=== PATIENT | male | born 1965 | race Hispanic/Latino ===

== ENCOUNTER 2017-10-16 22:52 | Inpatient (IN) | payer OTHER ==
[~2017-10-16] VITALS: Ht 185.4 cm; Wt 163.2 kg
[~2017-10-16 22:52] MED LIST: BUME1TAB17 PO; FAMO20TA8 PO; FURO40TA7 PO; LACT PO; LACT10SO9 PO; MIRAUD PO; SPIR100T PO; TRAM50TA2 PO
[2017-10-17] VITALS (9 sets, daily range): BP systolic 77–129; BP diastolic 32–92
[2017-10-17 00:19] LABS: BASOPHILS % (AUTO) 0.5 % (0.0-5.0); EOSINOPHILS % (AUTO) 0.6 % (0.0-8.0); HEMATOCRIT 41.6 % (42-54); LYMPHOCYTES % (AUTO) 4.9 % (21.0-51.0); MEAN CORPUSCULAR HEMOGLOBIN 31.1 pg (27.0-33.0); MEAN CORPUSCULAR VOLUME 89.1 fL (79-99); MONOCYTES % (AUTO) 9.6 % (3.0-13.0); NEUTROPHILS % (AUTO) 84.4 % (40.0-77.0); PLATELET COUNT (AUTO) 206 K/uL (130-400); RED BLOOD CELL COUNT(AUTO) 4.67 MIL/uL (4.50-6.20); WHITE BLOOD COUNT (AUTO) 14.7 K/uL (4.8-10.8)
[2017-10-17 00:36] LABS: PARTIAL THROMBOPLASTIN TIME 59.4 SEC (26.3-35.5)
[2017-10-17 00:40] LABS: INR 4.3 (0.85-1.15); PROTHROMBIN TIME 43.9 SEC (9.6-11.6)
[2017-10-17 00:54] LABS: ALBUMIN 1.6 g/dL (3.5-5.0); CREATININE 5.4 mg/dL (0.5-1.5)
[2017-10-17 01:00] LABS: BILIRUBIN,TOTAL 33.4 mg/dL (0.2-1.0); POTASSIUM 6.5 mmol/L (3.5-5.1)
[2017-10-17] MEDS ORDERED: CALCIUM GLUCONATE 1 GM/10 ML VIAL IV ONE (01:15)
[2017-10-17] MEDS ORDERED: DEXTROSE 50%-WATER 50 ML DISP.SYRIN IV ONE (01:15)
[2017-10-17] MEDS ORDERED: SODIUM POLYSTYRENE SULFONATE 15 GM/60 ML ML ONE (01:15)
[2017-10-17] MEDS ORDERED: INSULIN HUMULIN R 100 UNIT/ML 3ML ONE (01:16)
[2017-10-17 01:36] LABS: TOTAL PROTEIN, SERUM 6.4 g/dL (6.0-8.3)
[2017-10-17] MEDS ORDERED: SODIUM CHLORIDE 0.9% 1000ML 1,000 ML IV SCH ×2 (03:00→17:00)
[2017-10-17 05:13] LABS: ALANINE AMINOTRANSFERASE 167 U/L (12-78); ALBUMIN 1.5 g/dL (3.5-5.0); AMYLASE 23 U/L (25-115); ASPARTATE AMINOTRANSFERASE 352 U/L (10-37); CARBON DIOXIDE 16 mmol/L (21-32); CREATINE KINASE MB 2.7 ng/mL (0.5-3.6); CREATINE KINASE, TOTAL 204 U/L (21-232); CREATININE 5.3 mg/dL (0.5-1.5); GLOMERULAR FILTR. RATE CALC 12 mL/min (>60); GLUCOSE,RANDOM 57 mg/dL (70-105); LIPASE 166 U/L (114-286); MYOGLOBIN 1663 ng/mL (10-92); POTASSIUM 5.5 mmol/L (3.5-5.1); SODIUM SERUM 122 mmol/L (136-145); TROPONIN I < 0.04 ng/mL (0.00-0.06)
[2017-10-17 05:17] LABS: BILIRUBIN,TOTAL 30.5 mg/dL (0.2-1.0); CHLORIDE 85 mmol/L (101-111); UREA NITROGEN, BLOOD 83 mg/dL (7-18)
[2017-10-17 06:17] LABS: TOTAL PROTEIN, SERUM 5.7 g/dL (6.0-8.3)
[2017-10-17] MEDS ORDERED: POTASSIUM CHLORIDE 20 MEQ ERTAB PO PRN (06:45)
[2017-10-17] MEDS ORDERED: ACETAMINOPHEN 325 MG TAB PO PRN ×2 (06:45)
[2017-10-17] MEDS ORDERED: POTASSIUM CHLORIDE 20MEQ/100ML 100 ML IV PRN (06:45)
[2017-10-17] MEDS ORDERED: DEXTROSE 50%-WATER 50 ML DISP.SYRIN IV PRN (06:45)
[2017-10-17] MEDS ORDERED: DiphenhydrAMINE HCL 50 MG/ML VIAL IVP PRN (06:45)
[2017-10-17] MEDS ORDERED: NITROGLYCERIN 0.4 MG SL TAB SL PRN (06:45)
[2017-10-17] MEDS ORDERED: GUAIFENESIN SUGAR-FREE 100 MG/5 ML UDCUP PO PRN (06:45)
[2017-10-17] MEDS ORDERED: GLUCAGON 1MG KIT 1 MG ML IM PRN (06:45)
[2017-10-17] MEDS ORDERED: ZOLPIDEM TARTRATE 5 MG TAB PO PRN (06:45)
[2017-10-17] MEDS ORDERED: MAG HYDROX/AL HYDROX/SIMETH ES 30 ML SUSP UDCUP PO PRN (06:45)
[2017-10-17] MEDS ORDERED: GUAIFENESIN-DM 200/20 MG 10 ML PO PRN (06:45)
[2017-10-17] MEDS ORDERED: LIDOCAINE HCL-MPF 1% 2ML VIAL IJ PRN (06:45)
[2017-10-17] MEDS ORDERED: CLONIDINE HCL 0.1 MG TABLET PO PRN (06:45)
[2017-10-17] MEDS ORDERED: DIPHENHYDRAMINE HCL 25 MG CAPSULE PO PRN (06:45)
[2017-10-17] MEDS ORDERED: ONDANSETRON HCL 4 MG/2 ML VIAL IVP PRN (06:45)
[2017-10-17] MEDS ORDERED: POTASSIUM CHLORIDE 10% ELIXIR 20 MEQ/15 ML UDCUP PO PRN (06:45)
[2017-10-17] MEDS ORDERED: PANTOPRAZOLE SODIUM 40 MG TABLET.DR PO SCH (07:30)
[2017-10-17] MEDS: INSULIN R PO SSI SQ SCH ×4 (07:30→21:00)
[2017-10-17 10:27] LABS: CREATINE KINASE MB 2.6 ng/mL (0.5-3.6); CREATINE KINASE, TOTAL 192 U/L (21-232); MYOGLOBIN 1196 ng/mL (10-92); TROPONIN I < 0.04 ng/mL (0.00-0.06)
[2017-10-17] MEDS ORDERED: RIFA550T PO (10:30)
[2017-10-17] MEDS ORDERED: LACT10SO9 PO (10:30)
[2017-10-17] MEDS ORDERED: LACTULOSE 20 GM/30 ML UDCUP PO SCH (10:45)
[2017-10-17] MEDS: LACTULOSE 20 GM/30 ML UDCUP PO PRN ×2 (11:14→11:15)
[2017-10-17] MEDS ORDERED: LACTULOSE 20 GM/30 ML UDCUP PO ONE (14:00)
[2017-10-17] MEDS ORDERED: OCTREOTIDE ACETATE 100 MCG/ML AMP IV STA (16:57)
[2017-10-17 17:08] LABS: CREATINE KINASE MB 4.5 ng/mL (0.5-3.6); TROPONIN I 0.05 ng/mL (0.00-0.06)
[2017-10-17] MEDS ORDERED: PROPOFOL 10 MG/ML 20ML VIAL IV ONE (17:22)
[2017-10-17] MEDS ORDERED: MIDAZOLAM HCL 1 MG/ML 2ML VIAL ONE (17:23)
[2017-10-17] MEDS ORDERED: EPINEPHRINE 1 MG/ML AMPULE ONE ×2 (17:46→17:49)
[2017-10-17] MEDS ORDERED: EPHEDRINE SULFATE 50 MG/ML AMPULE ONE (17:50)
[2017-10-17] MEDS: OCTREOTIDE ACETATE 1,000 MCG in SODIUM CHLORIDE 0.9% 95 ML IV SCH (18:33)
[2017-10-17] MEDS: LACTULOSE 20 GM/30 ML UDCUP PO SCH ×2 (18:35→23:07)
[2017-10-17 20:38] LABS: APPEARANCE,URINE CLOUDY (CLEAR); BILIRUBIN,URINE LARGE (NEGATIVE); GLUCOSE, URINE (UA) NEGATIVE (NEGATIVE); KETONES,URINE 5 mg/dL (NEGATIVE); LEUKOCYTE ESTERASE ,URINE TRACE (NEGATIVE); NITRATE,URINE NEGATIVE (NEGATIVE); OCCULT BLOOD,URINE TRACE-LYSED (NEGATIVE); PROTEIN,URINE 30 (NEGATIVE)
[2017-10-17 20:41] LABS: COLOR,URINE DARK YELLOW (YELLOW)
[2017-10-17 20:43] LABS: CREATININE,URINE RANDOM 175 mg/dL (30-135); SODIUM,URINE RANDOM 12 mmol/l (40-220)
[2017-10-17 20:52] LABS: AMORPHOUS SEDIMENT,UR Few /LPF (None Seen)
[2017-10-17 20:53] LABS: OTHER CASTS, URINE MIXED CELL CASTS 1+ /LPF (None Seen)
[2017-10-17 20:55] LABS: BACTERIA,URINE Moderate /HPF (None Seen)
[2017-10-17] MEDS ORDERED: MIDODRINE HCL 5 MG TABLET PO SCH (21:00)
[2017-10-17] MEDS ORDERED: PANTOPRAZOLE 40 MG/VIAL IVP SCH ×2 (21:00→22:30)
[2017-10-17] MEDS ORDERED: CALCIUM GLUCONATE 1 GM in DEXTROSE 5%-WATER 50 ML IV PRN (21:30)
[2017-10-17 21:46] LABS: BASOPHILS % (AUTO) 0.2 % (0.0-5.0); EOSINOPHILS % (AUTO) 0.3 % (0.0-8.0); HEMATOCRIT 38.5 % (42-54); LYMPHOCYTES % (AUTO) 5.3 % (21.0-51.0); MEAN CORPUSCULAR HGB CONC 34.9 g/dL (32.0-36.0); MEAN CORPUSCULAR VOLUME 88.9 fL (79-99); MONOCYTES % (AUTO) 10.8 % (3.0-13.0); NEUTROPHILS % (AUTO) 83.4 % (40.0-77.0); NUCLEATED RED BLOOD CELLS 0.1 % (0.0-0.19); PLATELET COUNT (AUTO) 218 K/uL (130-400); RED BLOOD CELL COUNT(AUTO) 4.33 MIL/uL (4.50-6.20); RED CELL DISTRIBUTION WIDTH 17.7 % (11.0-15.5); WHITE BLOOD COUNT (AUTO) 16.6 K/uL (4.8-10.8)
[2017-10-17 21:49] LABS: ABG PCO2 26 mmHg (35-48)
[2017-10-17 21:55] LABS: CREATININE 5.9 mg/dL (0.5-1.5)
[2017-10-17 21:57] LABS: POTASSIUM 6.1 mmol/L (3.5-5.1)
[2017-10-17] MEDS ORDERED: SODIUM BICARB 50MEQ 50ML VIAL IV ONE (22:00)
[2017-10-17] MEDS ORDERED: ALBUMIN (HUMAN) 5% 250 ML IV ONE (22:00)
[2017-10-17] MEDS: SODIUM POLYSTYRENE SULFONATE 15 GM/60 ML ML PO PRN (22:25)
[2017-10-17] MEDS: CALCIUM GLUCONATE 1 GM/10 ML VIAL IV PRN (22:25)
[2017-10-17] MEDS: SODIUM BICARB 8.4% 50ML SYRING 200 MEQ in DEXTROSE 5%-WATER 950 ML IV SCH (22:54)
[2017-10-17] MEDS: PANTOPRAZOLE SODIUM 80 MG in SODIUM CHLORIDE 0.9% 100 ML IV SCH (22:58)
[2017-10-17] MEDS: SODIUM BICARBONATE 650 MG TAB PO SCH (23:18)
[2017-10-17] MEDS: RIFAXIMIN 550 MG TABLET PO SCH (23:18)
[2017-10-17] MEDS ORDERED: LEVOFLOXACIN 500 MG/D5W 100 ML 100 ML ONE (23:58)
[2017-10-18] VITALS (29 sets, daily range): BP systolic 84–124; BP diastolic 25–63
[2017-10-18 03:38] LABS: HEMATOCRIT 35.4 % (42-54); MEAN CORPUSCULAR HEMOGLOBIN 31.8 pg (27.0-33.0); MEAN CORPUSCULAR HGB CONC 36.1 g/dL (32.0-36.0); PLATELET COUNT (AUTO) 202 K/uL (130-400); RED BLOOD CELL COUNT(AUTO) 4.02 MIL/uL (4.50-6.20); RED CELL DISTRIBUTION WIDTH 17.8 % (11.0-15.5); WHITE BLOOD COUNT (AUTO) 13.9 K/uL (4.8-10.8)
[2017-10-18 04:20] LABS: ALBUMIN 1.5 g/dL (3.5-5.0); CREATININE 6.2 mg/dL (0.5-1.5); PHOSPHORUS 6.5 mg/dL (2.5-4.9); THYROID STIMULATING HORMONE 1.56 uIU/mL (0.36-3.74); TOTAL PROTEIN, SERUM 5.3 g/dL (6.0-8.3); URIC ACID 12.1 mg/dL (2.6-7.2)
[2017-10-18 04:28] LABS: BILIRUBIN,TOTAL 29.4 mg/dL (0.2-1.0); POTASSIUM 6.7 mmol/L (3.5-5.1)
[2017-10-18 04:46] LABS: BAND NEUTROPHILS % (MANUAL) 4 % (0-2); LYMPHOCYTES % (MANUAL) 4 % (22-44); MAN.DIFF COMMENT-IMPRESSION MANUAL DIFFERENTIAL; MONOCYTES % (MANUAL) 5 % (2-9); SEGMENTED NEUTROPHILS % 87 % (40-70)
[2017-10-18] MEDS: SODIUM POLYSTYRENE SULFONATE 15 GM/60 ML ML PO PRN (04:57)
[2017-10-18] MEDS: CALCIUM GLUCONATE 1 GM/10 ML VIAL IV PRN (04:58)
[2017-10-18] MEDS ORDERED: SODIUM BICARB 50MEQ 50ML VIAL ONE (05:40)
[2017-10-18] MEDS ORDERED: SODIUM BICARB 50MEQ 50ML VIAL IV ONE (05:45)
[2017-10-18] MEDS: INSULIN HUMULIN R 100 UNIT/ML 3ML IV SCH (05:45)
[2017-10-18] MEDS: DEXTROSE 50%-WATER 25 GM/50 ML VIAL IV SCH (05:45)
[2017-10-18] MEDS: INSULIN R PO SSI SQ SCH ×4 (05:55→20:04)
[2017-10-18] MEDS: LACTULOSE 20 GM/30 ML UDCUP PO SCH ×3 (05:59→18:00)
[2017-10-18] MEDS: PANTOPRAZOLE SODIUM 80 MG in SODIUM CHLORIDE 0.9% 100 ML IV SCH ×2 (07:39→17:41)
[2017-10-18] MEDS: OCTREOTIDE ACETATE 1,000 MCG in SODIUM CHLORIDE 0.9% 95 ML IV SCH (07:40)
[2017-10-18] MEDS: SODIUM BICARBONATE 650 MG TAB PO SCH ×2 (08:19→14:06)
[2017-10-18] MEDS: RIFAXIMIN 550 MG TABLET PO SCH ×2 (08:19→19:53)
[2017-10-18] MEDS: MIDODRINE HCL 5 MG TABLET PO SCH ×3 (08:20→19:54)
[2017-10-18] MEDS ORDERED: CEFTRIAXONE 1GM/D5W 50ML 50 ML IV SCH (09:15)
[2017-10-18] MEDS ORDERED: SODIUM POLYSTYRENE SULFONATE 15 GM/60 ML ML RC SCH (09:15)
[2017-10-18 10:23] LABS: BASOPHILS % (AUTO) 0.3 % (0.0-5.0); CREATININE 6.6 mg/dL (0.5-1.5); EOSINOPHILS % (AUTO) 0.2 % (0.0-8.0); HEMATOCRIT 35.4 % (42-54); LYMPHOCYTES % (AUTO) 4.3 % (21.0-51.0); MEAN CORPUSCULAR HEMOGLOBIN 31.6 pg (27.0-33.0); MEAN CORPUSCULAR HGB CONC 35.9 g/dL (32.0-36.0); MEAN CORPUSCULAR VOLUME 87.9 fL (79-99); MONOCYTES % (AUTO) 8.7 % (3.0-13.0); NEUTROPHILS % (AUTO) 86.5 % (40.0-77.0); PLATELET COUNT (AUTO) 169 K/uL (130-400); POTASSIUM 5.6 mmol/L (3.5-5.1); RED BLOOD CELL COUNT(AUTO) 4.03 MIL/uL (4.50-6.20); RED CELL DISTRIBUTION WIDTH 17.6 % (11.0-15.5); WHITE BLOOD COUNT (AUTO) 16.9 K/uL (4.8-10.8)
[2017-10-18] MEDS: CEFTRIAXONE SODIUM 1 GM IVP SCH (14:05)
[2017-10-18 14:15] LABS: CREATININE 6.4 mg/dL (0.5-1.5); POTASSIUM 5.3 mmol/L (3.5-5.1)
[2017-10-18 14:26] LABS: PARTIAL THROMBOPLASTIN TIME 86.4 SEC (26.3-35.5)
[2017-10-18 14:31] LABS: INR > 7.00 (0.85-1.15); PROTHROMBIN TIME > 63.0 SEC (9.6-11.6)
[2017-10-18 14:45] LABS: HEMATOCRIT 35.1 % (42-54); MEAN CORPUSCULAR HEMOGLOBIN 31.9 pg (27.0-33.0); MEAN CORPUSCULAR HGB CONC 36.2 g/dL (32.0-36.0); MEAN CORPUSCULAR VOLUME 88.1 fL (79-99); PLATELET COUNT (AUTO) 177 K/uL (130-400); RED BLOOD CELL COUNT(AUTO) 3.98 MIL/uL (4.50-6.20); RED CELL DISTRIBUTION WIDTH 17.2 % (11.0-15.5); WHITE BLOOD COUNT (AUTO) 16.2 K/uL (4.8-10.8)
[2017-10-18 15:15] LABS: BAND NEUTROPHILS % (MANUAL) 6 % (0-2); LYMPHOCYTES % (MANUAL) 3 % (22-44); MAN.DIFF COMMENT-IMPRESSION MANUAL DIFFERENTIAL; METAMYELOCYTES % 1 % (0-0); MONOCYTES % (MANUAL) 7 % (2-9); SEGMENTED NEUTROPHILS % 83 % (40-70)
[2017-10-18 15:16] LABS: PLATELET MORPHOLOGY COMMENT ADEQUATE
[2017-10-18] MEDS ORDERED: SODIUM CHLORIDE 0.9% 500ML 500 ML IV ONE ×2 (15:51→20:41)
[2017-10-18] MEDS: PHYTONADIONE 10 MG in SODIUM CHLORIDE 0.9% 50 ML IV SCH (17:40)
[2017-10-18] MEDS ORDERED: NOREPINEPHRINE 4MG/NS 250ML 250 ML IV PRN (19:15)
[2017-10-18] MEDS ORDERED: ALBUMIN (HUMAN) 5% 250 ML IV PRN (19:15)
[2017-10-18 19:52] LABS: INR 3.03 (0.85-1.15); PARTIAL THROMBOPLASTIN TIME 52.8 SEC (26.3-35.5); PROTHROMBIN TIME 31.1 SEC (9.6-11.6)
[2017-10-18] MEDS ORDERED: ALBUMIN (HUMAN) 25% 100 ML IV SCH (20:15)
[2017-10-18] MEDS: SODIUM BICARB 8.4% 50ML SYRING 200 MEQ in DEXTROSE 5%-WATER 950 ML IV SCH (20:45)
[2017-10-18] MEDS: ALBUMIN (HUMAN) 25% 100 ML IV SCH (21:01)
[2017-10-18 22:40] LABS: HEMATOCRIT 30.5 % (42-54); MEAN CORPUSCULAR HEMOGLOBIN 32.4 pg (27.0-33.0); MEAN CORPUSCULAR HGB CONC 36.8 g/dL (32.0-36.0); MEAN CORPUSCULAR VOLUME 87.9 fL (79-99); PLATELET COUNT (AUTO) 152 K/uL (130-400); RED BLOOD CELL COUNT(AUTO) 3.46 MIL/uL (4.50-6.20); RED CELL DISTRIBUTION WIDTH 17.5 % (11.0-15.5); WHITE BLOOD COUNT (AUTO) 16.4 K/uL (4.8-10.8)
[2017-10-18 22:54] LABS: CREATININE 6.9 mg/dL (0.5-1.5); POTASSIUM 5.3 mmol/L (3.5-5.1)
[2017-10-19] VITALS (24 sets, daily range): BP systolic 77–113; BP diastolic 30–55
[2017-10-19] MEDS: LACTULOSE 20 GM/30 ML UDCUP PO SCH ×4 (00:15→17:03)
[2017-10-19] MEDS: PANTOPRAZOLE SODIUM 80 MG in SODIUM CHLORIDE 0.9% 100 ML IV SCH ×2 (03:01→16:36)
[2017-10-19 04:00] LABS: HEMATOCRIT 32.7 % (42-54); MEAN CORPUSCULAR HEMOGLOBIN 31.3 pg (27.0-33.0); MEAN CORPUSCULAR HGB CONC 35.4 g/dL (32.0-36.0); MEAN CORPUSCULAR VOLUME 88.5 fL (79-99); PLATELET COUNT (AUTO) 145 K/uL (130-400); RED CELL DISTRIBUTION WIDTH 17.4 % (11.0-15.5); WHITE BLOOD COUNT (AUTO) 16.2 K/uL (4.8-10.8)
[2017-10-19 04:10] LABS: ABG BASE EXCESS 2.6 mmol/L (-2.0-3.0); ABG HCO3 24.8 mmol/L (21.0-28.0); ABG OXYGEN SATURATION 98.2 % (95.0-99.0); ABG PCO2 32 mmHg (35-48)
[2017-10-19] MEDS: ALBUMIN (HUMAN) 25% 100 ML IV SCH (04:11)
[2017-10-19 04:12] LABS: INR 1.8 (0.85-1.15); PARTIAL THROMBOPLASTIN TIME 45.9 SEC (26.3-35.5); PROTHROMBIN TIME 18.7 SEC (9.6-11.6)
[2017-10-19 04:57] LABS: CREATININE 7.1 mg/dL (0.5-1.5); MAGNESIUM 3.1 mg/dL (1.80-2.40); PHOSPHORUS 6.4 mg/dL (2.5-4.9); POTASSIUM 5.5 mmol/L (3.5-5.1); TOTAL PROTEIN, SERUM 5.4 g/dL (6.0-8.3)
[2017-10-19 05:35] LABS: BILIRUBIN,TOTAL 34.7 mg/dL (0.2-1.0)
[2017-10-19] MEDS: DEXTROSE 50%-WATER 25 GM/50 ML VIAL IV SCH (05:45)
[2017-10-19] MEDS: INSULIN HUMULIN R 100 UNIT/ML 3ML IV SCH (05:45)
[2017-10-19] MEDS: INSULIN R PO SSI SQ SCH ×4 (06:10→21:00)
[2017-10-19] MEDS: CALCIUM GLUCONATE 1 GM/10 ML VIAL IV PRN (06:40)
[2017-10-19] MEDS: SODIUM POLYSTYRENE SULFONATE 15 GM/60 ML ML PO PRN (06:42)
[2017-10-19] MEDS: MIDODRINE HCL 5 MG TABLET PO SCH ×3 (08:33→20:56)
[2017-10-19] MEDS: RIFAXIMIN 550 MG TABLET PO SCH ×2 (08:33→20:55)
[2017-10-19] MEDS: PHYTONADIONE 10 MG in SODIUM CHLORIDE 0.9% 50 ML IV SCH (09:44)
[2017-10-19] MEDS: OCTREOTIDE ACETATE 1,000 MCG in SODIUM CHLORIDE 0.9% 95 ML IV SCH (11:48)
[2017-10-19] MEDS: CEFTRIAXONE SODIUM 1 GM IVP SCH (12:02)
[2017-10-19] MEDS ORDERED: LEVOFLOXACIN 500 MG/D5W 100 ML 100 ML IV SCH (21:00)
[2017-10-19] MEDS ORDERED: SODIUM BICARB 8.4% 50ML SYRING 200 MEQ in DEXTROSE 5%-WATER 950 ML IV SCH (21:30)
[2017-10-20] VITALS (27 sets, daily range): BP systolic 54–106; BP diastolic 24–57
[2017-10-20] MEDS: LACTULOSE 20 GM/30 ML UDCUP PO SCH ×2 (00:18→05:45)
[2017-10-20] MEDS: PANTOPRAZOLE SODIUM 80 MG in SODIUM CHLORIDE 0.9% 100 ML IV SCH ×2 (02:11→09:56)
[2017-10-20] MEDS ORDERED: SODIUM CHLORIDE 0.9% 250 ML IV ONE (02:28)
[2017-10-20] MEDS ORDERED: NOREPINEPHRINE BITARTRATE 1 MG/1 ML ML IV ONE (02:29)
[2017-10-20] MEDS: DEXTROSE 50%-WATER 25 GM/50 ML VIAL IV SCH (03:39)
[2017-10-20] MEDS: INSULIN HUMULIN R 100 UNIT/ML 3ML IV SCH (03:39)
[2017-10-20 03:51] LABS: HEMATOCRIT 34.6 % (42-54); MEAN CORPUSCULAR HEMOGLOBIN 31.9 pg (27.0-33.0); MEAN CORPUSCULAR HGB CONC 35.9 g/dL (32.0-36.0); MEAN CORPUSCULAR VOLUME 88.9 fL (79-99); NUCLEATED RED BLOOD CELLS 0.5 % (0.0-0.19); PLATELET COUNT (AUTO) 217 K/uL (130-400); RED BLOOD CELL COUNT(AUTO) 3.89 MIL/uL (4.50-6.20); RED CELL DISTRIBUTION WIDTH 17.2 % (11.0-15.5); WHITE BLOOD COUNT (AUTO) 20.1 K/uL (4.8-10.8)
[2017-10-20 04:03] LABS: INR 1.58 (0.85-1.15); PARTIAL THROMBOPLASTIN TIME 45.7 SEC (26.3-35.5); PROTHROMBIN TIME 16.4 SEC (9.6-11.6)
[2017-10-20 04:22] LABS: ALBUMIN 2.3 g/dL (3.5-5.0); TOTAL PROTEIN, SERUM 5.8 g/dL (6.0-8.3)
[2017-10-20 04:45] LABS: CREATININE 9.1 mg/dL (0.5-1.5)
[2017-10-20] MEDS ORDERED: MIDODRINE HCL 5 MG TABLET NG SCH (05:00)
[2017-10-20] MEDS: CALCIUM GLUCONATE 1 GM/10 ML VIAL IV PRN (05:45)
[2017-10-20 05:58] LABS: BAND NEUTROPHILS % (MANUAL) 12 % (0-2); LYMPHOCYTES % (MANUAL) 13 % (22-44); METAMYELOCYTES % 2 % (0-0); MONOCYTES % (MANUAL) 6 % (2-9); REACTIVE LYMPHOCYTES 2 % (0-0); SEGMENTED NEUTROPHILS % 65 % (40-70)
[2017-10-20 05:59] LABS: MAN.DIFF COMMENT-IMPRESSION MANUAL DIFFERENTIAL; PLATELET MORPHOLOGY COMMENT ADEQUATE
[2017-10-20] MEDS: INSULIN R PO SSI SQ SCH (07:00)
[2017-10-20] MEDS: PHYTONADIONE 10 MG in SODIUM CHLORIDE 0.9% 50 ML IV SCH (09:56)
[2017-10-20] MEDS: OCTREOTIDE ACETATE 1,000 MCG in SODIUM CHLORIDE 0.9% 95 ML IV SCH (09:56)
[2017-10-20] MEDS ORDERED: LORAZEPAM 2 MG/ML 1 ML VIAL IVP ONE (10:50)
[2017-10-20] MEDS ORDERED: LORAZEPAM 2 MG/ML 1 ML VIAL ONE (10:51)
== END 2017-10-20 10:59 | disposition expired | DRG 469 ==
LOC: EDH 22:52 → EDHIP 10-17 01:34 → 2DH 10-17 02:17 → 2CH 10-17 18:22
PROVIDERS: ADMIT Family Medicine; ATTEND Family Medicine
PROC: 30233K1 Transfusion of Nonautologous Frozen Plasma into Peripheral Vein, Percutaneous Approach (ICD-10-PCS; principal; 2017-10-17)
PROC: 05HM33Z Insertion of Infusion Device into Right Internal Jugular Vein, Percutaneous Approach (ICD-10-PCS; 2017-10-17)
PROC: B543ZZA Ultrasonography of Right Jugular Veins, Guidance (ICD-10-PCS; 2017-10-17)
PROC: 0DJ08ZZ Inspection of Upper Intestinal Tract, Via Natural or Artificial Opening Endoscopic (ICD-10-PCS; 2017-10-17)
PROC: 0W9930Z Drainage of Right Pleural Cavity with Drainage Device, Percutaneous Approach (ICD-10-PCS; 2017-10-19)
DX: N17.9 Acute kidney failure, unspecified (principal); K72.00 Acute and subacute hepatic failure without coma; K76.7 Hepatorenal syndrome; E11.22 Type 2 diabetes mellitus with diabetic chronic kidney disease; D68.9 Coagulation defect, unspecified; D68.59 Other primary thrombophilia; D69.6 Thrombocytopenia, unspecified; E66.01 Morbid (severe) obesity due to excess calories; E87.1 Hypo-osmolality and hyponatremia; I12.9 Hypertensive chronic kidney disease with stage 1 through stage 4 chronic kidney disease, or unspecified chronic kidney disease; D72.829 Elevated white blood cell count, unspecified; E87.2 Acidosis; E87.5 Hyperkalemia; K72.90 Hepatic failure, unspecified without coma; K74.69 Other cirrhosis of liver; K76.0 Fatty (change of) liver, not elsewhere classified; N18.9 Chronic kidney disease, unspecified; K72.10 Chronic hepatic failure without coma; J93.9 Pneumothorax, unspecified; D64.9 Anemia, unspecified; K26.9 Duodenal ulcer, unspecified as acute or chronic, without hemorrhage or perforation; Z66 Do not resuscitate; Z68.42 Body mass index [BMI] 45.0-49.9, adult; Z88.0 Allergy status to penicillin
CPT/HCPCS: 36415; 36430; 36600; 36800; 71045; 76700; 80048; 80053; 81001; 82140; 82150; 82550; 82553; 82570; 82803; 82948; 83605; 83690; 83735; 83874; 83935; 84100; 84300; 84443; 84484; 84550; 85025; 85027; 85610; 85730; 86850; 86900; 86901; 86927; 93005; 99291; A4218; C1751; C1752; C1894; C9113; J0171; J0610; J0696; J1815; J1956; J2060; J2250; J2354; J2704; J3430; J3490; J7030; J7040; J7070; P9017; P9045; P9046